=== PATIENT | female | born 1960 | race Caucasian/White ===

== ENCOUNTER 2017-10-16 18:25 | Emergency (ER) | payer OTHER ==
[~2017-10-16] VITALS: Ht 157.5 cm; Wt 70.2 kg
[2017-10-16 18:28] VITALS: BP 154/88
[2017-10-16] MEDS ORDERED: DIPHENHYDRAMINE 25 MG CAPSULE ONE (19:27)
[2017-10-16] MEDS ORDERED: FAMOTIDINE 20 MG TABLET ONE (19:27)
[2017-10-16] MEDS ORDERED: FAMOTIDINE 20 MG TABLET PO ONE (19:30)
[2017-10-16] MEDS ORDERED: DIPHENHYDRAMINE 25 MG CAPSULE PO ONE (19:30)
== END 2017-10-16 20:56 | disposition home or self-care (01) ==
LOC: ED 20:15
DX: T78.49XA Other allergy, initial encounter (principal); X58.XXXA Exposure to other specified factors, initial encounter
CPT/HCPCS: 99284; J7512; Q0163